=== PATIENT | female | born 1930 | race Caucasian/White ===

== ENCOUNTER 2018-05-02 12:12 | Observation (INO) | payer MEDICARE, BC ==
[~2018-05-02] VITALS: Ht 170.2 cm; Wt 47.0 kg
[~2018-05-02 12:12] MED LIST: ASPI-1265 PO; ESCI10TA54 PO; PRIM50TA PO
[2018-05-02 13:00] LABS: BASOPHILS % (AUTO) 0.4 % (0-1); EOSINOPHILS # (AUTO) 0.2 X10'3 (0-0.9); EOSINOPHILS % (AUTO) 2.9 % (0-6); HEMATOCRIT 39.9 % (35.0-45.0); HEMOGLOBIN 13.3 g/dl (12.0-16.0); LYMPHOCYTES # (AUTO) 2.8 X10'3 (1.1-4.8); LYMPHOCYTES % (AUTO) 35.3 % (21-51); MEAN CORPUSCULAR HEMOGLOBIN 30.7 PG (27.0-31.0); MEAN CORPUSCULAR HGB CONC 33.3 % (33.0-36.5); MEAN CORPUSCULAR VOLUME 92.3 FL (78-98); MEAN PLATELET VOLUME 9.2 FL (7.4-10.4); MONOCYTES # (AUTO) 0.6 X10'3 (0-0.9); MONOCYTES % (AUTO) 7.6 % (2-12); NEUTROPHILS # (AUTO) 4.3 X10'3 (1.8-7.7); NEUTROPHILS % (AUTO) 53.8 % (42-75); PLATELET COUNT 162 X10'3 (140-440); RED BLOOD COUNT 4.32 X10'6 (4.20-5.60); RED CELL DISTRIBUTION WIDTH 13.9 % (11.5-14.5); WHITE BLOOD COUNT 8.1 X10'3 (4.5-11.0)
[2018-05-02 13:10] LABS: ALANINE AMINOTRANSFERASE 20 U/L (12-78); ALBUMIN 3.8 G/DL (3.4-5.0); ALBUMIN/GLOBULIN RATIO 1.1 (1.1-1.5); ALKALINE PHOSPHATASE 116 IU/L (46-116); ANION GAP 7 (8-16); ASPARTATE AMINO TRANSFERASE 27 U/L (10-37); BILIRUBIN,TOTAL 0.4 MG/DL (0.1-1.0); BLOOD UREA NITROGEN 20 MG/DL (7-18); CALCIUM 9.8 MG/DL (8.5-10.1); CHLORIDE 104 MMOL/L (99-107); CREATININE 0.91 MG/DL (0.40-0.90); GLUCOSE 96 MG/DL (70-104); POTASSIUM 4.2 MMOL/L (3.5-5.1); SODIUM 139 MMOL/L (135-145); TOTAL CARBON DIOXIDE 28.2 MMOL/L (24-32); TOTAL PROTEIN 7.2 G/DL (6.4-8.2); eGFR 58 ML/MIN
[2018-05-02] MEDS ORDERED: normal saline 1000ml 1,000 ML IV ONE (13:20)
[2018-05-02] MEDS ORDERED: normal saline 1000ml 1,000 ML IV SCH (14:24)
[2018-05-02] MEDS ORDERED: potassium Cl 20 mEq SR tablet PO PRN ×2 (14:25)
[2018-05-02] MEDS ORDERED: magnesium 4gm in 100ml NS 100 ML IV PRN (14:25)
[2018-05-02] MEDS ORDERED: potassium Cl 40MEQ/NS 500ml 500 ML IV PRN ×2 (14:25)
[2018-05-02] MEDS ORDERED: acetaminophen 325mg tablet PO PRN ×2 (14:25)
[2018-05-02] MEDS ORDERED: magnesium hydroxide 30ml (MOM) UD suspension PO PRN (14:25)
[2018-05-02] MEDS ORDERED: magnesium 1gm/100ml D5W IVPB 100 ML IV PRN (14:25)
[2018-05-02] MEDS ORDERED: mag hydrox/Alum hydrox/simeth 30ml oral suspension PO PRN (14:25)
[2018-05-02] MEDS ORDERED: HYDROcodone/acetaminophen 5mg/325mg tablet PO PRN (14:25)
[2018-05-02] MEDS ORDERED: ondansetron/PF 4mg/2ml inj IV PRN (14:25)
[2018-05-02] MEDS ORDERED: HYDROcodone/acetaminophen 10/325mg tab PO PRN (14:25)
[2018-05-02] MEDS ORDERED: CELE-85 PO (15:14)
[2018-05-02] MEDS ORDERED: ATOR40TA72 (15:14)
[2018-05-02] MEDS ORDERED: PRIM50TA42 PO (15:14)
[2018-05-02] MEDS ORDERED: DONE10TA44 (15:14)
[2018-05-02] MEDS ORDERED: CLOP75TA35 PO (15:14)
[2018-05-02] MEDS ORDERED: MULT-38 PO (15:14)
[2018-05-02 15:46] LABS: CLARITY,URINE CLEAR (Clear); COLOR,URINE YELLOW (Yellow); GLUCOSE, URINE NEGATIVE (Neg); KETONES,URINE NEGATIVE (Neg); LEUKOCYTE ESTERASE ,URINE NEGATIVE (Neg); NITRITES, URINE NEGATIVE (Neg); OCCULT BLOOD,URINE TRACE-INTACT (Neg); PROTEIN,URINE NEGATIVE (Neg); UROBILINOGEN,URINE 0.2 E.U/dL (0.2-1.0)
[2018-05-02 15:53] LABS: UA COLLECTION TYPE CLN CATCH MIDSTREAM
[2018-05-02 15:55] LABS: BACTERIA,URINE FEW /HPF (Neg); RBC,URINE 0-2 /HPF (0-2); SQUAMOUS EPITHELIAL CELL,UR MODERATE /LPF (FEW); WBC,URINE 0-4 /HPF (0-4)
[2018-05-02 16:00] VITALS: BP 169/77
[2018-05-02] MEDS ORDERED: DONE5TAB7 PO (17:03)
[2018-05-02] MEDS ORDERED: ATOR20TA66 PO (17:03)
[2018-05-02] MEDS ORDERED: LORA10TA65 PO (17:03)
[2018-05-02] MEDS ORDERED: PROP1DRO7 OP (17:03)
[2018-05-02 18:00] VITALS: BP 179/76
[2018-05-02] MEDS ORDERED: PROPYLENE GLYCOL OP PRN (18:40)
[2018-05-02] MEDS ORDERED: PEG OP PRN (18:40)
[2018-05-02] MEDS ORDERED: polyvinyl alcohol ophthalmic drops 15ml bottle EACHEYE PRN (18:45)
[2018-05-02] MEDS ORDERED: polyethylene glycol 3350 17gm powd pack PO PRN (18:45)
[2018-05-02] MEDS: heparin, porcine 5000 units/ml vial SQ SCH (20:48)
[2018-05-02] MEDS: primidone 50mg tablet PO SCH (20:49)
[2018-05-02 22:00] VITALS: BP 173/68
[2018-05-03] VITALS (7 sets, daily range): BP systolic 109–218; BP diastolic 53–101
[2018-05-03 07:02] LABS: BASOPHILS % (AUTO) 0.4 % (0-1); EOSINOPHILS # (AUTO) 0.3 X10'3 (0-0.9); EOSINOPHILS % (AUTO) 3.7 % (0-6); HEMATOCRIT 36.7 % (35.0-45.0); HEMOGLOBIN 12.3 g/dl (12.0-16.0); LYMPHOCYTES # (AUTO) 2.4 X10'3 (1.1-4.8); LYMPHOCYTES % (AUTO) 32.8 % (21-51); MEAN CORPUSCULAR HEMOGLOBIN 30.6 PG (27.0-31.0); MEAN CORPUSCULAR HGB CONC 33.4 % (33.0-36.5); MEAN CORPUSCULAR VOLUME 91.6 FL (78-98); MONOCYTES # (AUTO) 0.4 X10'3 (0-0.9); MONOCYTES % (AUTO) 5.7 % (2-12); NEUTROPHILS # (AUTO) 4.3 X10'3 (1.8-7.7); NEUTROPHILS % (AUTO) 57.4 % (42-75); PLATELET COUNT 136 X10'3 (140-440); RED CELL DISTRIBUTION WIDTH 13.7 % (11.5-14.5); WHITE BLOOD COUNT 7.4 X10'3 (4.5-11.0)
[2018-05-03 07:15] LABS: ALBUMIN 3.2 G/DL (3.4-5.0); ANION GAP 5 (8-16); BLOOD UREA NITROGEN 15 MG/DL (7-18); BUN/CREATININE RATIO 19.5 (6.6-38.0); CALCIUM 9.3 MG/DL (8.5-10.1); CHLORIDE 105 MMOL/L (99-107); CREATININE 0.77 MG/DL (0.40-0.90); GLUCOSE 85 MG/DL (70-104); MAGNESIUM 1.4 MG/DL (1.5-2.4); SODIUM 140 MMOL/L (135-145); TOTAL CARBON DIOXIDE 29.6 MMOL/L (24-32); eGFR 71 ML/MIN
[2018-05-03] MEDS: K and/or MAG REPLACEMENT MC SCH ×2 (07:41→07:45)
[2018-05-03] MEDS: clopidogrel 75mg tablet PO SCH (07:53)
[2018-05-03] MEDS: magnesium Cl slow-release 64mg tablet PO PRN ×2 (07:53→20:56)
[2018-05-03] MEDS: aspirin 81mg tablet.DR PO SCH (07:53)
[2018-05-03] MEDS: multivitamins, therapeutics tablet PO SCH (07:53)
[2018-05-03] MEDS: donepezil 5mg tablet PO SCH (07:54)
[2018-05-03] MEDS: primidone 50mg tablet PO SCH ×2 (07:54→20:56)
[2018-05-03] MEDS: CITALOpram 10mg tablet PO SCH (07:54)
[2018-05-03] MEDS: atorvastatin 20mg tablet PO SCH (07:54)
[2018-05-03] MEDS: heparin, porcine 5000 units/ml vial SQ SCH ×2 (07:55→20:56)
[2018-05-03] MEDS ORDERED: non-formulary drug (Multivitamin (Daily Multiple Vitamin) 1 TAB) PO SCH (08:00)
[2018-05-03] MEDS ORDERED: meclizine 12.5mg tablet PO ONE (10:50)
[2018-05-03] MEDS ORDERED: meclizine 12.5mg tablet PO PRN (10:50)
[2018-05-03] MEDS: amLODIPine 5mg tablet PO SCH (11:11)
[2018-05-03] MEDS: normal saline 1000ml 1,000 ML IV SCH ×2 (11:45→21:03)
[2018-05-03] MEDS ORDERED: normal saline 1000ml 1,000 ML IV ONE ×2 (11:45→13:15)
[2018-05-03] MEDS ORDERED: cloNIDine 0.1 mg tablet PO ONE (12:50)
[2018-05-04 06:00] VITALS: BP 150/69
[2018-05-04 06:38] LABS: BASOPHILS % (AUTO) 0.3 % (0-1); EOSINOPHILS # (AUTO) 0.2 X10'3 (0-0.9); EOSINOPHILS % (AUTO) 3.1 % (0-6); HEMATOCRIT 35.5 % (35.0-45.0); HEMOGLOBIN 11.7 g/dl (12.0-16.0); LYMPHOCYTES % (AUTO) 31.8 % (21-51); MEAN CORPUSCULAR HGB CONC 32.8 % (33.0-36.5); MEAN CORPUSCULAR VOLUME 91.3 FL (78-98); MEAN PLATELET VOLUME 8.8 FL (7.4-10.4); MONOCYTES # (AUTO) 0.4 X10'3 (0-0.9); MONOCYTES % (AUTO) 6.7 % (2-12); NEUTROPHILS # (AUTO) 3.7 X10'3 (1.8-7.7); NEUTROPHILS % (AUTO) 58.1 % (42-75); PLATELET COUNT 138 X10'3 (140-440); RED BLOOD COUNT 3.89 X10'6 (4.20-5.60); RED CELL DISTRIBUTION WIDTH 13.8 % (11.5-14.5); WHITE BLOOD COUNT 6.4 X10'3 (4.5-11.0)
[2018-05-04 06:50] LABS: ANION GAP 8 (8-16); BLOOD UREA NITROGEN 11 MG/DL (7-18); BUN/CREATININE RATIO 16.4 (6.6-38.0); CALCIUM 9.1 MG/DL (8.5-10.1); CHLORIDE 105 MMOL/L (99-107); CREATININE 0.67 MG/DL (0.40-0.90); GLUCOSE 98 MG/DL (70-104); MAGNESIUM 1.5 MG/DL (1.5-2.4); POTASSIUM 3.7 MMOL/L (3.5-5.1); SODIUM 139 MMOL/L (135-145); eGFR 83 ML/MIN
[2018-05-04] MEDS: K and/or MAG REPLACEMENT MC SCH (08:00)
[2018-05-04] MEDS: multivitamins, therapeutics tablet PO SCH (09:10)
[2018-05-04] MEDS: donepezil 5mg tablet PO SCH (09:10)
[2018-05-04] MEDS: atorvastatin 20mg tablet PO SCH (09:10)
[2018-05-04] MEDS: primidone 50mg tablet PO SCH (09:10)
[2018-05-04] MEDS: amLODIPine 5mg tablet PO SCH (09:10)
[2018-05-04] MEDS: heparin, porcine 5000 units/ml vial SQ SCH (09:11)
[2018-05-04] MEDS: clopidogrel 75mg tablet PO SCH (09:11)
[2018-05-04] MEDS: aspirin 81mg tablet.DR PO SCH (09:11)
[2018-05-04] MEDS: CITALOpram 10mg tablet PO SCH (09:11)
[2018-05-04] MEDS ORDERED: ASPI-1071 PO (09:45)
[2018-05-04] MEDS ORDERED: AMLO5TAB16 PO (09:45)
[2018-05-04] MEDS ORDERED: CITA10TA9 PO (09:45)
[2018-05-04 10:00] VITALS: BP 146/66
[2018-05-04] MEDS: normal saline 1000ml 1,000 ML IV SCH (14:06)
[2018-05-04] MEDS ORDERED: MECL12.584 PO (17:28)
== END 2018-05-04 14:35 | disposition home health service (06) ==
LOC: ER 12:12 → ED HOLD 14:24 → EDBEDREQ 15:20 → ORTHO 4S 15:45
PROVIDERS: ADMIT Internal Medicine; ATTEND Internal Medicine
DX: R42 Dizziness and giddiness (principal); I10 Essential (primary) hypertension; F03.90 Unspecified dementia, unspecified severity, without behavioral disturbance, psychotic disturbance, mood disturbance, and anxiety; F32.9 Major depressive disorder, single episode, unspecified; F41.9 Anxiety disorder, unspecified; E78.5 Hyperlipidemia, unspecified; E78.00 Pure hypercholesterolemia, unspecified; G20 Parkinson's disease; M19.90 Unspecified osteoarthritis, unspecified site; I73.9 Peripheral vascular disease, unspecified; G25.0 Essential tremor; I49.5 Sick sinus syndrome; Z87.891 Personal history of nicotine dependence; Z85.118 Personal history of other malignant neoplasm of bronchus and lung
CPT/HCPCS: 36415; 70450; 71045; 80048; 80053; 81001; 82948; 83735; 84484; 85025; 87070; 93005; 93306; 93880; 96360; 96361; 96372; 97110; 97116; 97161; 97530; 99285; G0378; J1644; J7030; J8597

== ENCOUNTER 2018-05-05 11:17 | Emergency (ER) | payer MEDICARE, BC ==
[~2018-05-05] VITALS: Ht 162.6 cm; Wt 48.0 kg
[~2018-05-05 11:17] MED LIST changes: +AMLO5TAB16 PO; +ASPI-1071 PO; -ASPI-1265 PO; +ATOR20TA66 PO; +CITA10TA9 PO; +CLOP75TA35 PO; +DONE5TAB7 PO; -ESCI10TA54 PO; +LORA10TA65 PO; +MECL12.584 PO; +MULT-38 PO; -PRIM50TA PO; +PRIM50TA42 PO; +PROP1DRO7 OP
[2018-05-05 11:53] LABS: BASOPHILS % (AUTO) 0.3 % (0-1); EOSINOPHILS # (AUTO) 0.2 X10'3 (0-0.9); EOSINOPHILS % (AUTO) 2.9 % (0-6); HEMATOCRIT 40.9 % (35.0-45.0); HEMOGLOBIN 13.4 g/dl (12.0-16.0); LYMPHOCYTES # (AUTO) 2.3 X10'3 (1.1-4.8); LYMPHOCYTES % (AUTO) 29.1 % (21-51); MEAN CORPUSCULAR HEMOGLOBIN 30.3 PG (27.0-31.0); MEAN CORPUSCULAR HGB CONC 32.8 % (33.0-36.5); MEAN CORPUSCULAR VOLUME 92.5 FL (78-98); MEAN PLATELET VOLUME 9.1 FL (7.4-10.4); MONOCYTES # (AUTO) 0.6 X10'3 (0-0.9); MONOCYTES % (AUTO) 7.5 % (2-12); NEUTROPHILS # (AUTO) 4.7 X10'3 (1.8-7.7); NEUTROPHILS % (AUTO) 60.2 % (42-75); PLATELET COUNT 176 X10'3 (140-440); RED BLOOD COUNT 4.42 X10'6 (4.20-5.60); RED CELL DISTRIBUTION WIDTH 13.9 % (11.5-14.5); WHITE BLOOD COUNT 7.8 X10'3 (4.5-11.0)
[2018-05-05 12:02] LABS: PARTIAL THROMBOPLASTIN TIME 25 SECONDS (22-32); PROTHROMBIN TIME 10.6 SECONDS (9.0-12.0)
[2018-05-05 12:10] LABS: ALANINE AMINOTRANSFERASE 26 U/L (12-78); ALBUMIN 3.7 G/DL (3.4-5.0); ALBUMIN/GLOBULIN RATIO 1.1 (1.1-1.5); ALKALINE PHOSPHATASE 108 IU/L (46-116); ANION GAP 7 (8-16); ASPARTATE AMINO TRANSFERASE 32 U/L (10-37); BILIRUBIN,TOTAL 0.5 MG/DL (0.1-1.0); BLOOD UREA NITROGEN 16 MG/DL (7-18); BUN/CREATININE RATIO 18.8 (6.6-38.0); CALCIUM 9.9 MG/DL (8.5-10.1); CHLORIDE 102 MMOL/L (99-107); CREATININE 0.85 MG/DL (0.40-0.90); GLUCOSE 108 MG/DL (70-104); POTASSIUM 4.1 MMOL/L (3.5-5.1); SODIUM 138 MMOL/L (135-145); TOTAL CARBON DIOXIDE 28.6 MMOL/L (24-32); TOTAL PROTEIN 7.1 G/DL (6.4-8.2); eGFR 63 ML/MIN
[2018-05-05 12:56] VITALS: BP 148/74
== END 2018-05-05 12:58 | disposition home or self-care (01) ==
LOC: ER 11:17
DX: R53.1 Weakness (principal); G20 Parkinson's disease; E78.00 Pure hypercholesterolemia, unspecified; I10 Essential (primary) hypertension; Z98.890 Other specified postprocedural states; Z88.0 Allergy status to penicillin; Z79.82 Long term (current) use of aspirin; Z79.899 Other long term (current) drug therapy
CPT/HCPCS: 36415; 71045; 80053; 82948; 84484; 85025; 85610; 85730; 93005; 99285; J7030

== ENCOUNTER 2018-06-24 14:12 | Emergency (ER) | payer MEDICARE, BC ==
[~2018-06-24] VITALS: Ht 157.5 cm; Wt 50.0 kg
[2018-06-24] MEDS ORDERED: normal saline 1000ML IV soln IVB ONE (14:30)
[2018-06-24 14:51] LABS: BASOPHILS % (AUTO) 0.4 % (0-1); EOSINOPHILS # (AUTO) 0.2 X10'3 (0-0.9); HEMATOCRIT 35.6 % (35.0-45.0); HEMOGLOBIN 11.8 g/dl (12.0-16.0); LYMPHOCYTES # (AUTO) 2.3 X10'3 (1.1-4.8); LYMPHOCYTES % (AUTO) 28.7 % (21-51); MEAN CORPUSCULAR HEMOGLOBIN 30.6 PG (27.0-31.0); MEAN CORPUSCULAR VOLUME 92.8 FL (78-98); MEAN PLATELET VOLUME 8.8 FL (7.4-10.4); MONOCYTES # (AUTO) 0.5 X10'3 (0-0.9); MONOCYTES % (AUTO) 6.8 % (2-12); NEUTROPHILS # (AUTO) 4.8 X10'3 (1.8-7.7); NEUTROPHILS % (AUTO) 61.1 % (42-75); PLATELET COUNT 170 X10'3 (140-440); RED BLOOD COUNT 3.84 X10'6 (4.20-5.60); RED CELL DISTRIBUTION WIDTH 14.5 % (11.5-14.5); WHITE BLOOD COUNT 7.9 X10'3 (4.5-11.0)
[2018-06-24 14:59] LABS: PROTHROMBIN TIME 10.6 SECONDS (9.0-12.0)
[2018-06-24 15:06] LABS: ALANINE AMINOTRANSFERASE 21 U/L (12-78); ALBUMIN 3.7 G/DL (3.4-5.0); ALBUMIN/GLOBULIN RATIO 1.1 (1.1-1.5); ALKALINE PHOSPHATASE 115 IU/L (46-116); ANION GAP 10 (8-16); ASPARTATE AMINO TRANSFERASE 31 U/L (10-37); BILIRUBIN,TOTAL 0.3 MG/DL (0.1-1.0); BLOOD UREA NITROGEN 26 MG/DL (7-18); CALCIUM 9.8 MG/DL (8.5-10.1); CHLORIDE 102 MMOL/L (99-107); GLUCOSE 108 MG/DL (70-104); POTASSIUM 4.1 MMOL/L (3.5-5.1); SODIUM 140 MMOL/L (135-145); TOTAL CARBON DIOXIDE 28.5 MMOL/L (24-32); eGFR 52 ML/MIN
[2018-06-24 15:10] LABS: TROPONIN I < 0.04 NG/ML (0.0-0.05)
[2018-06-24 15:46] LABS: OCCULT BLOOD STOOL POSITIVE (Neg)
[2018-06-24 15:54] LABS: CLARITY,URINE CLEAR (Clear); GLUCOSE, URINE NEGATIVE (Neg); KETONES,URINE TRACE mg/dl (Neg); LEUKOCYTE ESTERASE ,URINE NEGATIVE (Neg); NITRITES, URINE NEGATIVE (Neg); OCCULT BLOOD,URINE TRACE-INTACT (Neg); PH,URINE 5.5 (4.8-8.0); PROTEIN,URINE NEGATIVE (Neg)
[2018-06-24 16:22] VITALS: BP 125/89
[2018-06-24 16:25] LABS: UA COLLECTION TYPE OTHER
[2018-06-24 16:26] LABS: COLOR,URINE DARK YELLOW (Yellow)
[2018-06-24 16:27] LABS: HYALINE CASTS >30 /LPF (NEGATIVE)
[2018-06-24 16:28] LABS: WBC,URINE 0-4 /HPF (0-4)
[2018-06-24 16:29] LABS: RBC,URINE NONE SEEN /HPF (0-2)
[2018-06-24 16:30] LABS: BACTERIA,URINE NONE SEEN /HPF (Neg)
[2018-06-24 16:31] LABS: CAL OXALATE CRYSTALS 1+ /HPF (NEGATIVE); MUCUS STRANDS MANY /LPF (Neg); SQUAMOUS EPITHELIAL CELL,UR NONE SEEN /LPF (FEW)
== END 2018-06-24 16:25 | disposition home or self-care (01) ==
LOC: ER 14:13
DX: R55 Syncope and collapse (principal); D64.9 Anemia, unspecified; K64.8 Other hemorrhoids; G20 Parkinson's disease; F02.80 Dementia in other diseases classified elsewhere, unspecified severity, without behavioral disturbance, psychotic disturbance, mood disturbance, and anxiety; E78.00 Pure hypercholesterolemia, unspecified; I10 Essential (primary) hypertension; E78.5 Hyperlipidemia, unspecified; M19.90 Unspecified osteoarthritis, unspecified site; Z85.118 Personal history of other malignant neoplasm of bronchus and lung; Z88.0 Allergy status to penicillin; Z79.82 Long term (current) use of aspirin; Z79.899 Other long term (current) drug therapy
CPT/HCPCS: 36415; 51701; 71045; 80053; 81001; 82272; 84484; 85025; 85610; 93005; 99285; A4353; J7030; P9612

== ENCOUNTER 2018-07-15 09:07 | Outpatient (CLI) | payer MEDICARE, BC ==
[2018-07-15] VITALS (23 sets, daily range): BP systolic 43–130; BP diastolic 36–71
== END 2018-07-15 23:59 | disposition home or self-care (01) ==
LOC: CARD DIAG 09:07
PROVIDERS: ATTEND Internal Medicine Cardiovascular Disease
DX: R42 Dizziness and giddiness (principal)
CPT/HCPCS: 93660

== ENCOUNTER 2019-01-12 19:00 | Inpatient (IN) | payer MEDICARE, BC ==
[~2019-01-12] VITALS: Ht 157.5 cm; Wt 48.6 kg
[2019-01-12] MEDS ORDERED: HYDROcodone/acetaminophen 5mg/325mg tablet PO STA (20:14)
[2019-01-12 22:30] LABS: PROTHROMBIN TIME 10.3 SECONDS (9.0-12.0)
[2019-01-12 22:33] LABS: ALANINE AMINOTRANSFERASE 21 U/L (12-78); ALBUMIN 3.6 G/DL (3.4-5.0); ALKALINE PHOSPHATASE 127 IU/L (46-116); ANION GAP 4 (8-16); ASPARTATE AMINO TRANSFERASE 23 U/L (10-37); BILIRUBIN,TOTAL 0.2 MG/DL (0.1-1.0); BLOOD UREA NITROGEN 25 MG/DL (7-18); BUN/CREATININE RATIO 28.7 (6.6-38.0); CALCIUM 10.1 MG/DL (8.5-10.1); CHLORIDE 104 MMOL/L (99-107); CREATININE 0.87 MG/DL (0.40-0.90); GLUCOSE 145 MG/DL (70-104); POTASSIUM 4.8 MMOL/L (3.5-5.1); SODIUM 138 MMOL/L (135-145); TOTAL CARBON DIOXIDE 30.2 MMOL/L (24-32); TOTAL PROTEIN 7.1 G/DL (6.4-8.2); eGFR 61 ML/MIN
[2019-01-12 22:38] LABS: TROPONIN I < 0.04 NG/ML (0.0-0.05)
[2019-01-12 22:40] LABS: BASOPHILS % (AUTO) 0.3 % (0-1); EOSINOPHILS # (AUTO) 0.1 X10'3 (0-0.9); EOSINOPHILS % (AUTO) 0.8 % (0-6); HEMATOCRIT 36.1 % (35.0-45.0); LYMPHOCYTES # (AUTO) 1.6 X10'3 (1.1-4.8); LYMPHOCYTES % (AUTO) 17.7 % (21-51); MEAN CORPUSCULAR HEMOGLOBIN 30.7 PG (27.0-31.0); MEAN CORPUSCULAR HGB CONC 33.2 g/dL (33.0-36.5); MEAN CORPUSCULAR VOLUME 92.5 FL (78-98); MEAN PLATELET VOLUME 8.9 FL (7.4-10.4); MONOCYTES # (AUTO) 0.5 X10'3 (0-0.9); MONOCYTES % (AUTO) 6.2 % (2-12); NEUTROPHILS # (AUTO) 6.7 X10'3 (1.8-7.7); PLATELET COUNT 164 X10'3 (140-440); RED BLOOD COUNT 3.91 X10'6 (4.20-5.60); RED CELL DISTRIBUTION WIDTH 13.7 % (11.5-14.5); WHITE BLOOD COUNT 8.9 X10'3 (4.5-11.0)
--- NOTE | 2019-01-12 23:00 | NUR ---
Tried to do an I/O cath. Her vaginal anatomy will not allow for this. Her area seems to be fused. There is only a 1 cm slit for her vagina, the urethra is inside of this area. There is no way to visualize this and blind attempts yielded nothing.
[2019-01-12 23:27] LABS: CLARITY,URINE CLOUDY (Clear); COLOR,URINE YELLOW (Yellow); GLUCOSE, URINE NEGATIVE (Neg); KETONES,URINE NEGATIVE (Neg); LEUKOCYTE ESTERASE ,URINE NEGATIVE (Neg); NITRITES, URINE NEGATIVE (Neg); OCCULT BLOOD,URINE LARGE (Neg); PROTEIN,URINE TRACE mg/dl (Neg); UROBILINOGEN,URINE 0.2 E.U/dL (0.2-1.0)
[2019-01-12 23:32] LABS: UA COLLECTION TYPE CLN CATCH MIDSTREAM
[2019-01-12 23:33] LABS: RBC,URINE TNTC /HPF (0-2); SQUAMOUS EPITHELIAL CELL,UR FEW /LPF (FEW)
[2019-01-12 23:34] LABS: BACTERIA,URINE FEW /HPF (Neg); MUCUS STRANDS FEW /LPF (Neg); WBC,URINE 0-4 /HPF (0-4)
--- NOTE | 2019-01-13 00:08 | NUR ---
pt moved from fast track to main ER
--- NOTE | 2019-01-13 00:10 | NUR ---
pt's daughter states there is no way that she could take pt home because pt is too weak and pt's grandson who lives with her will be asleep and unable to help her
[2019-01-13] MEDS ORDERED: normal saline 1000ml 1,000 ML IV SCH (00:32)
[2019-01-13] MEDS ORDERED: acetaminophen 325mg tablet PO PRN ×2 (00:35)
[2019-01-13] MEDS ORDERED: magnesium hydroxide 30ml (MOM) UD suspension PO PRN (00:35)
[2019-01-13] MEDS ORDERED: ondansetron/PF 4mg/2ml inj IV PRN (00:35)
[2019-01-13] MEDS ORDERED: mag hydrox/Alum hydrox/simeth 30ml oral suspension PO PRN (00:35)
[2019-01-13] MEDS ORDERED: PRIM50TA27 PO (00:55)
[2019-01-13] MEDS ORDERED: ATOR10TA87 PO (00:55)
[2019-01-13] MEDS ORDERED: OMEP40CA37 PO (00:55)
[2019-01-13] MEDS ORDERED: CYCL-1 PO (00:55)
[2019-01-13] MEDS ORDERED: PROPYLENE GLYCOL OP PRN (01:00)
[2019-01-13] MEDS ORDERED: PEG OP PRN (01:00)
--- NOTE | 2019-01-13 04:21 | NUR ---
patient placed on hospital bed
--- NOTE | 2019-01-13 06:39 | NUR ---
ATTEMPTED TO GIVE REPORT TO THE NURSE ON SURGICAL UNIT. NURSE IS BUSY WITH PATIENTS AND UNABLE TO TAKE REPORT AT THIS TIME. ER CHARGE NURSE NOTIFIED.
--- NOTE | 2019-01-13 08:18 | NUR ---
REPORT TO KI FOOTE ON SURGICAL UNIT.
[2019-01-13] MEDS: pantoprazole 40mg Tablet.DR PO SCH (08:31)
[2019-01-13] MEDS: atorvastatin 10mg tablet PO SCH (08:32)
[2019-01-13] MEDS: multivitamins, therapeutics tablet PO SCH (08:32)
[2019-01-13] MEDS: clopidogrel 75mg tablet PO SCH (08:32)
[2019-01-13] MEDS: cyclobenzaprine 10mg tablet PO SCH ×2 (08:32→19:46)
[2019-01-13] MEDS: CITALOpram 10mg tablet PO SCH (08:33)
[2019-01-13] MEDS: amLODIPine 5mg tablet PO SCH (08:33)
[2019-01-13] MEDS: aspirin 81mg tablet.DR PO SCH (08:33)
[2019-01-13 09:00] VITALS: BP 142/78
[2019-01-13 12:00] VITALS: BP 136/83
[2019-01-13] MEDS: OLANZAPINE 5 MG TABLET PO PRN (17:46)
[2019-01-13 18:00] VITALS: BP 142/68
--- NOTE | 2019-01-13 19:25 | NUR ---
Problems reprioritized. Patient report given, questions answered & plan of care reviewed with Edwin EMERSON. Pt has some confusion but on bed alarm on. Pt pleasant and eating dinner at time of bedside report.
--- NOTE | 2019-01-13 19:26 | NUR ---
Patient in room [facility]. I have received report from KI Rivera and had the opportunity to ask questions and assume patient care.
[2019-01-13] MEDS: Melatonin 3mg tablet PO PRN (19:46)
[2019-01-13] MEDS ORDERED: haloperidol lactate 5mg/ml inj IM PRN (23:20)
[2019-01-14] VITALS: BP 103/72
[2019-01-14] MEDS ORDERED: haloperidol lactate 5mg/ml inj IM PRN (04:35)
--- NOTE | 2019-01-14 06:33 | NUR ---
Problems reprioritized. Patient report given, questions answered & plan of care reviewed with KI Marcos.
[2019-01-14 08:00] VITALS: BP 134/73
[2019-01-14 09:07] LABS: BASOPHILS # (AUTO) 0.1 X10'3 (0-0.2); BASOPHILS % (AUTO) 0.5 % (0-1); EOSINOPHILS % (AUTO) 0.3 % (0-6); HEMATOCRIT 33.1 % (35.0-45.0); LYMPHOCYTES # (AUTO) 2.1 X10'3 (1.1-4.8); LYMPHOCYTES % (AUTO) 20.5 % (21-51); MEAN CORPUSCULAR HEMOGLOBIN 30.6 PG (27.0-31.0); MEAN CORPUSCULAR HGB CONC 33.1 g/dL (33.0-36.5); MEAN CORPUSCULAR VOLUME 92.2 FL (78-98); MEAN PLATELET VOLUME 8.6 FL (7.4-10.4); MONOCYTES # (AUTO) 0.7 X10'3 (0-0.9); MONOCYTES % (AUTO) 7.1 % (2-12); NEUTROPHILS # (AUTO) 7.2 X10'3 (1.8-7.7); NEUTROPHILS % (AUTO) 71.6 % (42-75); PLATELET COUNT 157 X10'3 (140-440); RED BLOOD COUNT 3.59 X10'6 (4.20-5.60); RED CELL DISTRIBUTION WIDTH 13.9 % (11.5-14.5); WHITE BLOOD COUNT 10.1 X10'3 (4.5-11.0)
[2019-01-14 09:15] LABS: ALBUMIN 3.5 G/DL (3.4-5.0); ANION GAP 8 (8-16); BLOOD UREA NITROGEN 20 MG/DL (7-18); BUN/CREATININE RATIO 26.3 (6.6-38.0); CALCIUM 9.7 MG/DL (8.5-10.1); CHLORIDE 105 MMOL/L (99-107); CREATININE 0.76 MG/DL (0.40-0.90); GLUCOSE 108 MG/DL (70-104); POTASSIUM 4.4 MMOL/L (3.5-5.1); SODIUM 138 MMOL/L (135-145); TOTAL CARBON DIOXIDE 25.1 MMOL/L (24-32); eGFR 72 ML/MIN
[2019-01-14] MEDS: clopidogrel 75mg tablet PO SCH (09:49)
[2019-01-14] MEDS: multivitamins, therapeutics tablet PO SCH (09:49)
[2019-01-14] MEDS: aspirin 81mg tablet.DR PO SCH (09:49)
[2019-01-14] MEDS: pantoprazole 40mg Tablet.DR PO SCH (09:49)
[2019-01-14] MEDS: amLODIPine 5mg tablet PO SCH (09:49)
[2019-01-14] MEDS: CITALOpram 10mg tablet PO SCH (09:49)
[2019-01-14] MEDS: cyclobenzaprine 10mg tablet PO SCH ×2 (09:49→20:41)
[2019-01-14] MEDS: atorvastatin 10mg tablet PO SCH (09:49)
[2019-01-14 12:00] VITALS: BP 126/76
--- NOTE | 2019-01-14 18:15 | NUR ---
Patient in room [facility]. I have received report from KI Marcos and had the opportunity to ask questions and assume patient care.
[2019-01-14 19:00] VITALS: BP 155/91
[2019-01-14] MEDS: OLANZAPINE 5 MG TABLET PO PRN (20:41)
[2019-01-14] MEDS: Melatonin 3mg tablet PO PRN (20:41)
[2019-01-14] MEDS: heparin, porcine 5000 units/ml vial SQ SCH (20:41)
[2019-01-15 00:30] VITALS: BP 157/71
[2019-01-15 05:51] LABS: BASOPHILS % (AUTO) 0.3 % (0-1); EOSINOPHILS % (AUTO) 0.4 % (0-6); HEMATOCRIT 34.6 % (35.0-45.0); HEMOGLOBIN 11.6 g/dl (12.0-16.0); LYMPHOCYTES # (AUTO) 2.1 X10'3 (1.1-4.8); MEAN CORPUSCULAR HGB CONC 33.4 g/dL (33.0-36.5); MEAN CORPUSCULAR VOLUME 92.6 FL (78-98); MEAN PLATELET VOLUME 8.5 FL (7.4-10.4); MONOCYTES # (AUTO) 0.7 X10'3 (0-0.9); NEUTROPHILS # (AUTO) 6.7 X10'3 (1.8-7.7); NEUTROPHILS % (AUTO) 70.3 % (42-75); PLATELET COUNT 175 X10'3 (140-440); RED BLOOD COUNT 3.73 X10'6 (4.20-5.60); RED CELL DISTRIBUTION WIDTH 13.7 % (11.5-14.5); WHITE BLOOD COUNT 9.6 X10'3 (4.5-11.0)
[2019-01-15 06:05] LABS: ALBUMIN 3.7 G/DL (3.4-5.0); ANION GAP 11 (8-16); BLOOD UREA NITROGEN 15 MG/DL (7-18); CALCIUM 10.1 MG/DL (8.5-10.1); CHLORIDE 104 MMOL/L (99-107); CREATININE 0.79 MG/DL (0.40-0.90); GLUCOSE 132 MG/DL (70-104); POTASSIUM 3.9 MMOL/L (3.5-5.1); SODIUM 140 MMOL/L (135-145); TOTAL CARBON DIOXIDE 24.6 MMOL/L (24-32); eGFR 69 ML/MIN
--- NOTE | 2019-01-15 06:45 | NUR ---
Problems reprioritized. Patient report given, questions answered & plan of care reviewed with KI Elizabeth.
--- NOTE | 2019-01-15 06:48 | NUR ---
Patient in room [facility]. I have received report from Edwin EMERSON and had the opportunity to ask questions and assume patient care.
[2019-01-15 07:00] VITALS: BP 139/85
[2019-01-15] MEDS: aspirin 81mg tablet.DR PO SCH (08:06)
[2019-01-15] MEDS: cyclobenzaprine 10mg tablet PO SCH ×2 (08:07→19:56)
[2019-01-15] MEDS: CITALOpram 10mg tablet PO SCH (08:07)
[2019-01-15] MEDS: pantoprazole 40mg Tablet.DR PO SCH (08:07)
[2019-01-15] MEDS: multivitamins, therapeutics tablet PO SCH (08:07)
[2019-01-15] MEDS: amLODIPine 5mg tablet PO SCH (08:07)
[2019-01-15] MEDS: atorvastatin 10mg tablet PO SCH (08:07)
[2019-01-15] MEDS: clopidogrel 75mg tablet PO SCH (08:07)
[2019-01-15] MEDS: heparin, porcine 5000 units/ml vial SQ SCH ×2 (08:08→19:56)
[2019-01-15 18:00] VITALS: BP 171/93
--- NOTE | 2019-01-15 18:30 | NUR ---
Patient in room [facility]. I have received report from KI Elizabeth and had the opportunity to ask questions and assume patient care.
[2019-01-15] MEDS: Melatonin 3mg tablet PO PRN (19:56)
[2019-01-15 20:15] VITALS: BP 157/78
[2019-01-15] MEDS: OLANZAPINE 5 MG TABLET PO PRN (20:23)
--- NOTE | 2019-01-16 06:13 | NUR ---
Problems reprioritized. Patient report given, questions answered & plan of care reviewed with KI Elizabeth.
--- NOTE | 2019-01-16 06:28 | NUR ---
Patient in room [facility]. I have received report from Edwin EMERSON and had the opportunity to ask questions and assume patient care.
[2019-01-16 07:00] VITALS: BP 140/83
[2019-01-16] MEDS: amLODIPine 5mg tablet PO SCH (08:42)
[2019-01-16] MEDS: atorvastatin 10mg tablet PO SCH (08:42)
[2019-01-16] MEDS: pantoprazole 40mg Tablet.DR PO SCH (08:42)
[2019-01-16] MEDS: multivitamins, therapeutics tablet PO SCH (08:42)
[2019-01-16] MEDS: cyclobenzaprine 10mg tablet PO SCH (08:42)
[2019-01-16] MEDS: clopidogrel 75mg tablet PO SCH (08:42)
[2019-01-16] MEDS: aspirin 81mg tablet.DR PO SCH (08:42)
[2019-01-16] MEDS: CITALOpram 10mg tablet PO SCH (08:42)
[2019-01-16] MEDS: heparin, porcine 5000 units/ml vial SQ SCH (08:43)
[2019-01-16 11:00] VITALS: BP 130/65
--- NOTE | 2019-01-16 14:10 | NUR ---
Report given to ANY Ríos from [facility]. 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 Daughters already aware of the discharge to [facility] today. There was no belongings at bedside drawer or closet when I checked it. Peripheral IV catheter removed, tip intact
--- NOTE | 2019-01-16 15:10 | NUR ---
Patient left the room, on a wheelchair accompanied by a daughter and yulisa personnel
== END 2019-01-16 15:11 | DRG 641 ==
LOC: ER 19:00 → SUR 3N 01-13 08:57 → CMPBEDREQ 01-13 20:00
PROVIDERS: ADMIT Hospitalist; ATTEND Hospitalist
DX: E86.0 Dehydration (principal); G93.40 Encephalopathy, unspecified; F03.90 Unspecified dementia, unspecified severity, without behavioral disturbance, psychotic disturbance, mood disturbance, and anxiety; G20 Parkinson's disease; I10 Essential (primary) hypertension; E11.51 Type 2 diabetes mellitus with diabetic peripheral angiopathy without gangrene; E78.00 Pure hypercholesterolemia, unspecified; E78.5 Hyperlipidemia, unspecified; J45.909 Unspecified asthma, uncomplicated; R62.7 Adult failure to thrive; F32.9 Major depressive disorder, single episode, unspecified; F41.9 Anxiety disorder, unspecified; M19.90 Unspecified osteoarthritis, unspecified site; M79.601 Pain in right arm; W18.39XA Other fall on same level, initial encounter; I25.2 Old myocardial infarction; Z95.1 Presence of aortocoronary bypass graft; Z88.0 Allergy status to penicillin; Z85.118 Personal history of other malignant neoplasm of bronchus and lung; Z86.73 Personal history of transient ischemic attack (TIA), and cerebral infarction without residual deficits; Z87.891 Personal history of nicotine dependence; Y92.89 Other specified places as the place of occurrence of the external cause; Y93.89 Activity, other specified
CPT/HCPCS: 36415; 70450; 73090; 80048; 80053; 81001; 84484; 85025; 85610; 87070; 93005; 97110; 97116; 97162; 97530; 99285; G0378; J1630; J1644

== ENCOUNTER 2019-06-02 09:48 | Emergency (ER) | payer MEDICARE, BC ==
[~2019-06-02] VITALS: Ht 154.9 cm; Wt 59.1 kg
[~2019-06-02 09:48] MED LIST changes: +ATOR10TA87 PO; -ATOR20TA66 PO; +CYCL-1 PO; -DONE5TAB7 PO; -LORA10TA65 PO; -MECL12.584 PO; +OMEP40CA13 PO; +PRIM50TA27 PO; -PRIM50TA42 PO
[2019-06-02 10:24] LABS: BASOPHILS % (AUTO) 0.6 % (0-1); EOSINOPHILS # (AUTO) 0.2 X10'3 (0-0.9); EOSINOPHILS % (AUTO) 2.8 % (0-6); HEMATOCRIT 36.3 % (35.0-45.0); HEMOGLOBIN 11.9 g/dl (12.0-16.0); LYMPHOCYTES % (AUTO) 28.3 % (21-51); MEAN CORPUSCULAR HEMOGLOBIN 30.5 PG (27.0-31.0); MEAN CORPUSCULAR HGB CONC 32.8 g/dL (33.0-36.5); MEAN PLATELET VOLUME 8.3 FL (7.4-10.4); MONOCYTES # (AUTO) 0.5 X10'3 (0-0.9); MONOCYTES % (AUTO) 6.8 % (2-12); NEUTROPHILS # (AUTO) 4.4 X10'3 (1.8-7.7); NEUTROPHILS % (AUTO) 61.5 % (42-75); PLATELET COUNT 199 X10'3 (140-440); WHITE BLOOD COUNT 7.1 X10'3 (4.5-11.0)
[2019-06-02 10:47] LABS: ALANINE AMINOTRANSFERASE 21 U/L (12-78); ALBUMIN 3.4 G/DL (3.4-5.0); ALKALINE PHOSPHATASE 104 IU/L (46-116); ANION GAP 6 (8-16); ASPARTATE AMINO TRANSFERASE 28 U/L (10-37); BILIRUBIN,TOTAL 0.2 MG/DL (0.1-1.0); BLOOD UREA NITROGEN 26 MG/DL (7-18); CHLORIDE 104 MMOL/L (99-107); GLUCOSE 105 MG/DL (70-104); POTASSIUM 4.6 MMOL/L (3.5-5.1); SODIUM 139 MMOL/L (135-145); TOTAL CARBON DIOXIDE 28.6 MMOL/L (24-32); TOTAL PROTEIN 6.9 G/DL (6.4-8.2); eGFR 52 ML/MIN
[2019-06-02] MEDS ORDERED: normal saline 1000ML IV soln IVB ONE (11:05)
[2019-06-02] MEDS ORDERED: NA P133E4 RC (13:34)
[2019-06-02 13:45] VITALS: BP 146/72
== END 2019-06-02 13:47 | disposition home or self-care (01) ==
LOC: ER 09:49
DX: K59.00 Constipation, unspecified (principal); R53.1 Weakness; G20 Parkinson's disease; F02.80 Dementia in other diseases classified elsewhere, unspecified severity, without behavioral disturbance, psychotic disturbance, mood disturbance, and anxiety; E78.00 Pure hypercholesterolemia, unspecified; I10 Essential (primary) hypertension; M19.90 Unspecified osteoarthritis, unspecified site; F32.9 Major depressive disorder, single episode, unspecified; F41.9 Anxiety disorder, unspecified; R79.1 Abnormal coagulation profile; Z88.0 Allergy status to penicillin; Z79.899 Other long term (current) drug therapy; Z79.82 Long term (current) use of aspirin; Z85.118 Personal history of other malignant neoplasm of bronchus and lung; Z95.1 Presence of aortocoronary bypass graft; Z90.2 Acquired absence of lung [part of]
CPT/HCPCS: 36415; 71045; 74176; 80053; 85025; 85610; 99284; J7040

== ENCOUNTER 2019-09-22 10:24 | Emergency (ER) | payer MEDICARE, OTHER ==
[~2019-09-22] VITALS: Ht 160 cm; Wt 47.0 kg
--- NOTE | 2019-09-22 10:51 | NUR ---
contact info: Miriam Diamond [facility] cell [phone]; Luh Patel [phone]
[2019-09-22] MEDS ORDERED: glycerin ADULT rectal suppository RC ONE (10:55)
[2019-09-22] MEDS ORDERED: ondansetron/PF 4mg/2ml inj IV ONE (10:55)
[2019-09-22] MEDS ORDERED: bisacodyl 5mg tablet.DR PO ONE (10:55)
[2019-09-22] MEDS ORDERED: normal saline 1000ML IV soln IVB ONE (10:55)
[2019-09-22 11:31] LABS: BASOPHILS % (AUTO) 0.4 % (0-1); EOSINOPHILS # (AUTO) 0.1 X10'3 (0-0.9); EOSINOPHILS % (AUTO) 0.7 % (0-6); HEMATOCRIT 35.4 % (35.0-45.0); HEMOGLOBIN 11.9 g/dl (12.0-16.0); LYMPHOCYTES # (AUTO) 1.4 X10'3 (1.1-4.8); LYMPHOCYTES % (AUTO) 12.8 % (21-51); MEAN CORPUSCULAR HEMOGLOBIN 31.6 PG (27.0-31.0); MEAN CORPUSCULAR HGB CONC 33.7 g/dL (33.0-36.5); MEAN CORPUSCULAR VOLUME 93.6 FL (78-98); MEAN PLATELET VOLUME 8.9 FL (7.4-10.4); MONOCYTES # (AUTO) 0.5 X10'3 (0-0.9); MONOCYTES % (AUTO) 4.3 % (2-12); NEUTROPHILS # (AUTO) 8.9 X10'3 (1.8-7.7); NEUTROPHILS % (AUTO) 81.8 % (42-75); PLATELET COUNT 167 X10'3 (140-440); RED BLOOD COUNT 3.78 X10'6 (4.20-5.60); RED CELL DISTRIBUTION WIDTH 13.3 % (11.5-14.5); WHITE BLOOD COUNT 10.9 X10'3 (4.5-11.0)
[2019-09-22 11:44] LABS: ALANINE AMINOTRANSFERASE 25 U/L (12-78); ALBUMIN 3.6 G/DL (3.4-5.0); ALBUMIN/GLOBULIN RATIO 1.1 (1.1-1.5); ALKALINE PHOSPHATASE 118 IU/L (46-116); ANION GAP 7 (8-16); ASPARTATE AMINO TRANSFERASE 32 U/L (10-37); BILIRUBIN,TOTAL 0.3 MG/DL (0.1-1.0); BLOOD UREA NITROGEN 25 MG/DL (7-18); BUN/CREATININE RATIO 23.1 (6.6-38.0); CALCIUM 10.1 MG/DL (8.5-10.1); CHLORIDE 104 MMOL/L (99-107); CREATININE 1.08 MG/DL (0.40-0.90); GLUCOSE 119 MG/DL (70-104); LIPASE 125 U/L (73-393); POTASSIUM 4.3 MMOL/L (3.5-5.1); SODIUM 141 MMOL/L (135-145); TOTAL CARBON DIOXIDE 29.7 MMOL/L (24-32); eGFR 48 ML/MIN
[2019-09-22] MEDS ORDERED: LIDOcaine Viscous 15ml cup MM ONE (13:05)
[2019-09-22] MEDS ORDERED: magnesium citrate 296ml oral solution PO ONE (15:15)
[2019-09-22] MEDS ORDERED: LACT10SO57 PO (15:21)
[2019-09-22] MEDS ORDERED: BISA-155 PO (15:21)
[2019-09-22 16:00] VITALS: BP 135/65
[2019-09-23] MEDS ORDERED: DICY10CA88 PO (07:24)
== END 2019-09-22 16:00 | disposition home or self-care (01) ==
LOC: ER 10:25
DX: K59.00 Constipation, unspecified (principal); F03.90 Unspecified dementia, unspecified severity, without behavioral disturbance, psychotic disturbance, mood disturbance, and anxiety; E78.00 Pure hypercholesterolemia, unspecified; I10 Essential (primary) hypertension; M19.90 Unspecified osteoarthritis, unspecified site; F41.9 Anxiety disorder, unspecified; F32.9 Major depressive disorder, single episode, unspecified; R11.10 Vomiting, unspecified; Z98.890 Other specified postprocedural states; Z88.0 Allergy status to penicillin; Z79.82 Long term (current) use of aspirin; Z79.899 Other long term (current) drug therapy
CPT/HCPCS: 36415; 74176; 80053; 83690; 85025; 96374; 99284; J2405; J7030

== ENCOUNTER 2019-09-23 05:50 | Emergency (ER) | payer MEDICARE, OTHER ==
[~2019-09-23] VITALS: Ht 157.5 cm; Wt 46.4 kg
[~2019-09-23 05:50] MED LIST changes: +BISA-155 PO; +LACT10SO57 PO
[2019-09-23] MEDS ORDERED: dicyclomine 10 MG capsule PO ONE (06:05)
[2019-09-23 06:51] LABS: BASOPHILS % (AUTO) 0.2 % (0-1); EOSINOPHILS # (AUTO) 0.1 X10'3 (0-0.9); HEMATOCRIT 36.1 % (35.0-45.0); HEMOGLOBIN 12.2 g/dl (12.0-16.0); LYMPHOCYTES # (AUTO) 1.6 X10'3 (1.1-4.8); LYMPHOCYTES % (AUTO) 16.4 % (21-51); MEAN CORPUSCULAR HEMOGLOBIN 31.7 PG (27.0-31.0); MEAN CORPUSCULAR HGB CONC 33.8 g/dL (33.0-36.5); MEAN CORPUSCULAR VOLUME 93.8 FL (78-98); MEAN PLATELET VOLUME 8.9 FL (7.4-10.4); MONOCYTES # (AUTO) 0.5 X10'3 (0-0.9); MONOCYTES % (AUTO) 5.3 % (2-12); NEUTROPHILS # (AUTO) 7.5 X10'3 (1.8-7.7); NEUTROPHILS % (AUTO) 77.1 % (42-75); PLATELET COUNT 165 X10'3 (140-440); RED BLOOD COUNT 3.85 X10'6 (4.20-5.60); RED CELL DISTRIBUTION WIDTH 13.4 % (11.5-14.5); WHITE BLOOD COUNT 9.8 X10'3 (4.5-11.0)
[2019-09-23 07:00] LABS: ALANINE AMINOTRANSFERASE 27 U/L (12-78); ALBUMIN 3.9 G/DL (3.4-5.0); ALBUMIN/GLOBULIN RATIO 1.2 (1.1-1.5); ALKALINE PHOSPHATASE 120 IU/L (46-116); ANION GAP 4 (8-16); ASPARTATE AMINO TRANSFERASE 33 U/L (10-37); BILIRUBIN,TOTAL 0.4 MG/DL (0.1-1.0); BLOOD UREA NITROGEN 23 MG/DL (7-18); BUN/CREATININE RATIO 19.7 (6.6-38.0); CALCIUM 10.4 MG/DL (8.5-10.1); CHLORIDE 102 MMOL/L (99-107); CREATININE 1.17 MG/DL (0.40-0.90); GLUCOSE 117 MG/DL (70-104); LIPASE 110 U/L (73-393); POTASSIUM 3.5 MMOL/L (3.5-5.1); SODIUM 139 MMOL/L (135-145); TOTAL CARBON DIOXIDE 33.5 MMOL/L (24-32); TOTAL PROTEIN 7.2 G/DL (6.4-8.2); eGFR 44 ML/MIN
[2019-09-23] MEDS ORDERED: DICY10CA88 PO (07:24)
[2019-09-23 07:47] VITALS: BP 135/80
== END 2019-09-23 07:56 | disposition home or self-care (01) ==
LOC: ER 05:51
DX: R10.9 Unspecified abdominal pain (principal); F03.90 Unspecified dementia, unspecified severity, without behavioral disturbance, psychotic disturbance, mood disturbance, and anxiety; E78.00 Pure hypercholesterolemia, unspecified; I10 Essential (primary) hypertension; M19.90 Unspecified osteoarthritis, unspecified site; F41.9 Anxiety disorder, unspecified; F32.9 Major depressive disorder, single episode, unspecified; Z85.118 Personal history of other malignant neoplasm of bronchus and lung; Z88.0 Allergy status to penicillin; Z79.82 Long term (current) use of aspirin; Z79.899 Other long term (current) drug therapy
CPT/HCPCS: 36415; 74018; 80053; 83605; 83690; 85025; 99284